=== PATIENT | female | born 1960 | race Caucasian/White ===

== ENCOUNTER 2016-10-16 13:14 | Inpatient (IN) | payer OTHER ==
[2016-10-16 13:23] VITALS: BMI 22.3
[2016-10-16] MEDS ORDERED: ASPIRIN 325 MG ENTERIC COATED TABLET (FP) PO ONE (13:42)
[2016-10-16] MEDS ORDERED: ASPIRIN 325 MG TABLET ONE (13:42)
--- NOTE | 2016-10-16 13:42 | PDOC ---
History of Present Illness - General History Source: Patient, Old Records Exam Limitations: No Limitations <Jennifer Beck - Last Filed: 10/16/16 15:51> - General History Source: Patient, Family (Daughter) Exam Limitations: No Limitations - History of Present Illness Initial Comments: 10/16/16 13:51 The patient is a 56-year-old Divehi Speaking woman, accompanied by her daughter , with a significant past medical history of hypertension, diet controlled diabetes mellitus and gastroesophageal reflux disease who presents to the emergency department via walk-in for further evaluation of chest pain. Information was obtained by patient's daughter, as she is fluent in [place] and Divehi. As per daughter, the patient woke up this morning, at approximately 01: 00 AM with complaints of mid-sternal, non-radiating chest pain, described as a burning sensation with associated shortness of breath, diaphoresis and chills. At that time, she states her pain was a 10/10 in severity. Her woke up and measured her blood pressure (reportedly 180s/90s; typical baseline BP is in the 120s/90s). Patient did not want to come to the hospital. Patient's daughter just so happened to visit her mother, approximately 1 hour ago, when she informed her daughter of her symptoms. Patient's daughter convinced her to present to the ED for further evaluation. Currently, the patient reports chest pain (rated 5/10 in severity) that is exacerbated when taking deep inspirations. She also states that she is currently nauseous. No generalized weakness. No lightheadedness, dizziness, visual changes, headaches, neck pain/stiffness. No abdominal pain, vomiting, diarrhea. No urinary symptoms. Allergies: Penicillin. Shellfish Past Surgical History: Cholecystectomy. Caesarian section x2,. Cardiac catheterization. Tubal ligation. Social History: No tobacco, EtOH and recreational drug use. Primary Care Physician: Dr. Jonathan Berry <Catherine Orantes - Last Filed: 10/16/16 16:10> - General Chief Complaint: Chest Pain Stated Complaint: CHEST PAIN Time Seen by Provider: 10/16/16 13:28 Past History - Past Medical History Anemia: No Asthma: No Cancer: No Cardiac Disorders: No CVA: No COPD: No CHF: No Dementia: No Diabetes: Yes GI Disorders: Yes Disorders: No HTN: Yes Hypercholesterolemia: No Liver Disease: No Seizures: No Thyroid Disease: No Other medical history: CROHNS - Surgical History Abdominal Surgery: Yes Appendectomy: No Cardiac Surgery: No Cholecystectomy: Yes Lung Surgery: No Neurologic Surgery: No Orthopedic Surgery: No - Psycho/Social/Smoking Cessation Hx Anxiety: No Suicidal Ideation: No Smoking History: Former smoker Have you smoked in the past 12 months: No If you are a former smoker, when did you quit?: 15 YRS AGO Information on smoking cessation initiated: No Hx Alcohol Use: No Drug/Substance Use Hx: No Substance Use Type: None <Jennifer Beck - Last Filed: 10/16/16 15:51> <Catherine Orantes - Last Filed: 10/16/16 16:10> - Past Medical History Allergies/Adverse Reactions: Allergies Allergy/AdvReac Type Severity Reaction Status Date / Time Penicillins Allergy Verified 10/16/16 13:23 shellfish derived Allergy Verified 10/16/16 13:23 Home Medications: Ambulatory Orders Budesonide [Uceris (Nonformulary)] 9 mg PO DAILY 10/16/16 Colestipol HCl [Colestid] 1 gm PO BID 10/16/16 Omeprazole Magnesium [Prilosec] 40 mg PO DAILY 10/16/16 Review of Systems - Review of Systems Able to Perform ROS?: Yes Comments:: 10/16/16 13:51 CONSTITUTIONAL: Present: Chills. Diaphoresis. Absent: fever, generalized weakness, malaise, loss of appetite HEENT: Absent: rhinorrhea, nasal congestion, throat pain, throat swelling, difficulty swallowing, mouth swelling, ear pain, eye pain, visual Changes CARDIOVASCULAR: Present: Chest Pain. Absent: syncope, palpitations, irregular heart rate, lightheadedness, peripheral edema RESPIRATORY: Present: Shortness of breath. Absent: cough, dyspnea with exertion , orthopnea, wheezing, stridor, hemoptysis GASTROINTESTINAL: Present: Nausea. Absent: abdominal distension, vomiting, diarrhea, constipation, melena, hematochezia GENITOURINARY: Absent: dysuria, frequency, urgency, hesitancy, hematuria, flank pain, genital pain MUSCULOSKELETAL: Absent: myalgia, arthralgia, joint swelling SKIN: Absent: rash, itching, pallor HEMATOLOGIC/IMMUNOLOGIC: Absent: easy bleeding, easy bruising, lymphadenopathy, frequent infections ENDOCRINE:Absent: unexplained weight gain, unexplained weight loss, heat intolerance, cold intolerance NEUROLOGIC: Absent: headache, focal weakness or paresthesias, dizziness, unsteady gait, seizure, mental status changes, bladder or bowel incontinence PSYCHIATRIC: Absent: anxiety, depression, suicidal or homicidal ideation, hallucinations <OrantesLeandroCatherine - Last Filed: 10/16/16 16:10> *Physical Exam - Vital Signs Last Vital Signs Temp Pulse Resp BP Pulse Ox 98.2 F 91 H 20 165/88 99 10/16/16 13:18 10/16/16 13:18 10/16/16 13:18 10/16/16 13:18 10/16/16 13:18 <Jennifer Beck - Last Filed: 10/16/16 15:51> - Vital Signs Last Vital Signs Temp Pulse Resp BP Pulse Ox 98.2 F 91 H 20 165/88 99 10/16/16 13:18 10/16/16 13:18 10/16/16 13:18 10/16/16 13:18 10/16/16 13:18 - Physical Exam Comments: 10/16/16 13:51 GENERAL: Well developed, well nourished. Awake and alert. No acute distress. HEENT: Normocephalic, atraumatic. PERRLA, EOMI. No conjunctival pallor. Sclera are non-icteric. Moist mucous membranes. Oropharynx is clear. NECK: Supple. Full ROM. No JVD. CARDIOVASCULAR: Regular rate and rhythm. No murmurs, rubs, or gallops. PULMONARY: No evidence of respiratory distress. Lungs clear to auscultation bilaterally. No wheezing, rales or rhonchi. ABDOMINAL: Soft. Non-tender. Non-distended. No rebound or guarding. No organomegaly. Normoactive bowel sounds. MUSCULOSKELETAL: Normal range of motion at all joints. No bony deformities or tenderness. No CVA tenderness. EXTREMITIES: No cyanosis. No clubbing. No edema. No calf tenderness. SKIN: Warm and dry. Normal capillary refill. No rashes. No jaundice. NEUROLOGICAL: Alert, awake, appropriate. Cranial nerves 2-12 intact. Normal speech. PSYCHIATRIC: Cooperative. Good eye contact. Appropriate mood and affect. <Catherine Orantes - Last Filed: 10/16/16 16:10> ED Treatment Course - LABORATORY CBC & Chemistry Diagram: 10/16/16 13:00 10/16/16 13:00 <Jennifer Beck - Last Filed: 10/16/16 15:51> - LABORATORY CBC & Chemistry Diagram: 10/16/16 13:00 10/16/16 13:00 - RADIOLOGY Radiograph Interpretation: 10/16/16 14:26 EXAM: RAD/CHEST X-RAY PORTABLE IMPRESSION: A single AP view the chest reveals a weak inspiratory effort with clear lungs, prominent heart, normal aorta and normal eli. The angles are sharp. An acute process is not seen. Since 01/02/2009, allowing for variation in inspiration, there is no change of an adverse nature. - Medications Given in the ED: ED Medications Discontinued Medications Generic Name Dose Route Start Last Admin Trade Name Freq PRN Reason Stop Dose Admin Aspirin 325 mg 10/16/16 13:42 10/16/16 13:50 Ecotrin - PO 10/16/16 13:43 325 mg ONCE ONE Administration <Catherine Orantes - Last Filed: 10/16/16 16:10> Medical Decision Making - Medical Decision Making 10/16/16 13:43 56-year-old female with history of hypertension, GERD, diet controlled diabetes who presents the emergency department with chest pain 12 hours that has been waxing and waning in nature. Differential diagnosis includes but is not limited to: ACS, GERD, pneumonia, gastritis, pancreatitis, dehydration, toxic/metabolic derangement. Plan: 1. EKG 2. Labs 3. Aspirin 4. Observe and reevaluate 5. Given the patient's cardiac risk factors and history of present illness, will likely have the patient admitted to observation for serial cardiac markers and stress test <Jennifer Beck - Last Filed: 10/16/16 15:51> - Medical Decision Making 10/16/16 15:[address] Bridgette Velázquez who covers for patient's primary care physician, Dr. Jonathan Berry, here at the hospital. <Catherine Orantes - Last Filed: 10/16/16 16:10> *DC/Admit/Observation/Transfer - Discharge Dispostion Admit: Yes - Attestations Physician Attestion: 10/16/16 13:45 I, Dr. Jennifer Beck, attest that the scribes documentation that appears above has been prepared under my direction and personally reviewed by me in its entirety. I confirmed that the note above accurately reflects all work, treatment, procedures, and medical decision-making performed by me. <Jennifer Beck - Last Filed: 10/16/16 15:51> - Attestations Scribe Attestion: 10/16/16 13:52 Documentation prepared by Catherine Orantes, acting as hospitalist medical director for Jennifer Beck MD. <Catherine Orantes - Last Filed: 10/16/16 16:10> Diagnosis at time of Disposition: Chest pain - Discharge Dispostion Condition at time of disposition: Stable - Referrals Referrals: Jonathan Berry MD [Primary Care Provider] -
[2016-10-16 13:54] LABS: BASOPHIL 0.4 % (0-2.0); EOSINOPHIL 2.2 % (0-4.5); MCH 27.6 pg (25.7-33.7); MEAN CELL VOLUME 83.4 fl (80-96); MEAN PLT VOLUME 9.8 fl (7.5-11.1); NEUTROPHILS 68.5 % (42.8-82.8); PLATELET COUNT 244 K/MM3 (134-434); RDW 13.8 % (11.6-15.6); WHITE BLOOD COUNT 9.6 K/mm3 (4.0-10.0)
[2016-10-16 14:19] LABS: ALBUMIN 3.7 g/dl (3.4-5.0); ANION GAP 13 (8-16); BILIRUBIN,TOTAL 0.6 mg/dL (0.2-1.0); CALCIUM 9.4 mg/dL (8.5-10.1); CO2 26 mmol/L (21-32); COCKROFT - GAULT 63.4185; CREATININE 0.9 mg/dL (0.55-1.02); GLUCOSE,RANDOM 99 mg/dL (74-106); SGOT/AST 19 U/L (15-37); SGPT/ALT 18 U/L (12-78); TOT PROT 7.9 g/dl (6.4-8.2)
[2016-10-16 14:21] LABS: ALK PHOS 136 U/L (45-117); TROPONIN I < 0.02 ng/ml (0.00-0.05)
[2016-10-16 14:55] LABS: URINE APPEARANCE CLEAR; URINE BILIRUBIN NEGATIVE (NEGATIVE); URINE COLOR COLORLESS; URINE GLUCOSE (UA) NEGATIVE (NEGATIVE); URINE KETONE NEGATIVE (NEGATIVE); URINE LEUK ESTERASE NEGATIVE (NEGATIVE); URINE NITRITE NEGATIVE (NEGATIVE); URINE PROTEIN NEGATIVE (NEGATIVE); URINE UROBILINOGEN NEGATIVE E.U./dl (0.2-1.0)
[2016-10-16 15:04] LABS: URINE BLOOD 1+ (NEGATIVE)
[2016-10-16 15:27] LABS: URINE RBC 1 /hpf (0-3); URINE WBC <1 /hpf (3-5)
[2016-10-16 21:27] LABS: TROPONIN I < 0.02 ng/ml (0.00-0.05)
[2016-10-16] MEDS: PANTOPRAZOLE 40 MG TABLET (FP) PO SCH (22:21)
[2016-10-17] MEDS ORDERED: PT OWN MED DRAWER 7, Y5N ONE ×4 (09:26→22:11)
[2016-10-17] MEDS ORDERED: BUDESONIDE 9 MG PO SCH (10:00)
--- NOTE | 2016-10-17 10:01 | CON.CARD ---
Consult Consult Specialty:: cardiology Reason for Consultation:: chest pain - History of Present Illness Chief Complaint: Pt denies chest pain or dyspnea presently. History of Present Illness: The patient is a 56-year-old Pashto Speaking woman, accompanied by her daughter , with a significant past medical history of hypertension, diet controlled diabetes mellitus and gastroesophageal reflux disease who presents to the emergency department via walk-in for further evaluation of chest pain. Information was obtained by patient's daughter, as she is fluent in Lao and Pashto. As per daughter, the patient woke up this morning, at approximately 01: 00 AM with complaints of mid-sternal, non-radiating chest pain, described as a burning sensation with associated shortness of breath, diaphoresis and chills. At that time, she states her pain was a 10/10 in severity. Her woke up and measured her blood pressure (reportedly 180s/90s; typical baseline BP is in the 120s/90s). Patient did not want to come to the hospital. Patient's daughter just happened to visit her mother, approximately 1 hour ago, when she informed her daughter of her symptoms. Patient's daughter convinced her to present to the ED for further evaluation. Currently, the patient reports chest pain (rated 5/10 in severity) that is exacerbated when taking deep inspirations. She also states that she is currently nauseous. No generalized weakness. No lightheadedness, dizziness, visual changes, headaches, neck pain/stiffness. No abdominal pain, vomiting, diarrhea. No urinary symptoms. Allergies: Penicillin. Shellfish Past Surgical History: Cholecystectomy. Caesarian section x2,. Cardiac catheterization. Tubal ligation. Social History: No tobacco, EtOH and recreational drug use. Primary Care Physician: Dr. Jonathan Berry - History Source History Provided By: Patient, Medical Record Limitations to Obtaining History: Poor Historian - Past Medical History Cardio/Vascular: Yes: HTN, Hyperlipdemia, Other (DM) Pulmonary: No: Asthma Gastrointestinal: Yes: GERD Reproductive: Yes: Postmenopausal Psych: Yes: Anxiety - Alcohol/Substance Use Hx Alcohol Use: No - Smoking History Smoking history: Former smoker Have you smoked in the past 12 months: No If you are a former smoker, when did you quit?: 15 YRS AGO Home Medications - Allergies Allergies/Adverse Reactions: Allergies Allergy/AdvReac Type Severity Reaction Status Date / Time Penicillins Allergy Verified 10/16/16 13:23 shellfish derived Allergy Verified 10/16/16 13:23 - Home Medications Home Medications: Ambulatory Orders Budesonide [Uceris (Nonformulary)] 9 mg PO DAILY 10/16/16 Colestipol HCl [Colestid] 1 gm PO BID 10/16/16 Omeprazole Magnesium [Prilosec] 40 mg PO DAILY 10/16/16 Azathioprine [Imuran] 75 mg PO DAILY 10/17/16 Losartan/Hydrochlorothiazide [Losartan-Hctz 50-12.5 mg Tab] 1 tablet 10/17/16 Family Disease History - Family Disease History Family History: Denies Review of Systems - Review of Systems Constitutional: reports: Loss of Appetite Eyes: reports: No Symptoms HENT: reports: No Symptoms Neck: reports: No Symptoms Cardiovascular: reports: Chest Pain Respiratory: reports: SOB on Exertion Gastrointestinal: reports: Indigestion, Nausea Genitourinary: reports: No Symptoms Breasts: reports: No Symptoms Reported Musculoskeletal: reports: No Symptoms Integumentary: reports: No Symptoms Neurological: reports: No Symptoms Endocrine: reports: No Symptoms Hematology/Lymphatic: reports: No Symptoms - Risk Factors Known Risk Factors: Yes: Age, Diabetes Mellitus, Hypercholesterolemia, Hypertension, Physical Inactivity Vital Signs: Vital Signs Temperature 98.2 F 10/17/16 06:43 Pulse Rate 81 10/17/16 06:43 Respiratory Rate 18 10/17/16 06:43 Blood Pressure 112/65 10/17/16 06:43 O2 Sat by Pulse Oximetry (%) 100 10/16/16 21:30 Constitutional: Yes: Anxious Eyes: Yes: WNL HENT: Yes: WNL Neck: Yes: WNL Respiratory: Yes: Regular Gastrointestinal: Yes: Soft Renal/: No: Anuria Cardiovascular: Yes: Regular Rate and Rhythm JVD: No Carotid Bruit: No PMI: Non-Displaced Heart Sounds: Yes: S1, S2 Murmur: Yes: Systolic Murmur, Grade 1 Extremities: Yes: WNL Edema: No Peripheral Pulses WNL: Yes Integumentary: Yes: WNL Neurological: Yes: Alert, Oriented Psychiatric: Yes: Oriented - Other Data Labs, Other Data: Troponin, BNP 10/16/16 20:45 Troponin I < 0.02 Troponin, BNP 10/16/16 20:45 Troponin I < 0.02 Imaging - Results Chest X-ray: Image Reviewed (no acute pathology) EKG: Image Reviewed (normal study (05/28)) Problem List - Problems (1) Diabetes Code(s): E11.9 - TYPE 2 DIABETES MELLITUS WITHOUT COMPLICATIONS (2) Diarrhea Code(s): R19.7 - DIARRHEA, UNSPECIFIED (3) HTN (hypertension) Code(s): I10 - ESSENTIAL (PRIMARY) HYPERTENSION (4) Hyperlipidemia Code(s): E78.5 - HYPERLIPIDEMIA, UNSPECIFIED (5) Nausea Code(s): R11.0 - NAUSEA (6) Elevated lipase Assessment/Plan: repeat level; GI input (?hx Chron disease). Code(s): R74.8 - ABNORMAL LEVELS OF OTHER SERUM ENZYMES (7) Crohn disease Assessment/Plan: ? hx. F/u with PMD, GI. Code(s): K50.90 - CROHN'S DISEASE, UNSPECIFIED, WITHOUT COMPLICATIONS (8) Atypical chest pain Assessment/Plan: TNI < 0.02. Pt reproduced with deep breaths; lasting off and on for >24 hours. F/u EKG, ECHO. Obtain complete cardiac history. Lipids; TSH. Code(s): R07.89 - OTHER CHEST PAIN
[2016-10-17] MEDS: PANTOPRAZOLE 40 MG TABLET (FP) PO SCH (10:10)
[2016-10-17 11:32] LABS: MAGNESIUM 1.9 mg/dL (1.8-2.4)
[2016-10-17 11:39] LABS: THYROID STIMULATING HORMONE 1.4 uIU/ml (0.358-3.74)
[2016-10-17] MEDS: BUDESONIDE 3 MG PO SCH (14:15)
--- NOTE | 2016-10-17 21:58 | HP ---
Admitting History and Physical - Admission History Source: Patient - Past Medical History Cardiovascular: Yes: HTN, Hyperlipdemia Gastrointestinal: Yes: GERD Endocrine: Yes: Diabetes Mellitus - Past Surgical History Past Surgical History: Yes: None - Smoking History Smoking history: Former smoker Have you smoked in the past 12 months: No If you are a former smoker, when did you quit?: 15 YRS AGO - Alcohol/Substance Use Hx Alcohol Use: No Home Medications - Allergies Allergies/Adverse Reactions: Allergies Allergy/AdvReac Type Severity Reaction Status Date / Time Penicillins Allergy Verified 10/16/16 13:23 shellfish derived Allergy Verified 10/16/16 13:23 - Home Medications Home Medications: Ambulatory Orders Budesonide [Uceris (Nonformulary)] 9 mg PO DAILY 10/16/16 Colestipol HCl [Colestid] 1 gm PO BID 10/16/16 Omeprazole Magnesium [Prilosec] 40 mg PO DAILY 10/16/16 Azathioprine [Imuran] 75 mg PO DAILY 10/17/16 Losartan/Hydrochlorothiazide [Losartan-Hctz 50-12.5 mg Tab] 1 tablet 10/17/16 Family Disease History - Family Disease History Family History: Unremarkable Review of Systems - Review of Systems Constitutional: reports: No Symptoms Eyes: reports: No Symptoms HENT: reports: No Symptoms Neck: reports: No Symptoms Cardiovascular: reports: Chest Pain Respiratory: reports: No Symptoms Gastrointestinal: reports: Nausea Genitourinary: reports: No Symptoms Physical Examination Vital Signs: Vital Signs Temperature 98.3 F 10/17/16 14:29 Pulse Rate 85 10/17/16 14:29 Respiratory Rate 18 10/17/16 14:29 Blood Pressure 121/75 10/17/16 14:29 O2 Sat by Pulse Oximetry (%) 95 10/17/16 17:00 Constitutional: Yes: Well Nourished Eyes: Yes: WNL HENT: Yes: WNL Neck: Yes: Supple Cardiovascular: Yes: WNL, Regular Rate and Rhythm Respiratory: Yes: WNL, Regular, CTA Bilaterally Gastrointestinal: Yes: WNL, Normal Bowel Sounds, Soft Musculoskeletal: Yes: WNL Extremities: Yes: WNL Edema: No Neurological: Yes: WNL, Alert, Oriented ...Motor Strength: WNL Labs: CBC, BMP 10/17/16 10:35 Assessment/Plan 1. Chest pain Admit to tele Serial cpok/troponin Check echo ?elevated lipase ?pancreatitis 2 pancreatitis Change to po liquids due to elevated lipase Trend labs in am Check ct scan abd/pelvis GI consult 3. HTN/HLD
[2016-10-17] MEDS: COLESTIPOL HCL 1 GM PO SCH (22:07)
[2016-10-18] MEDS ORDERED: DEXTROSE 5%-0.45% SALINE 1,000 ML IV SCH (01:15)
[2016-10-18 02:43] LABS: AMYLASE 149 U/L (25-115)
[2016-10-18] MEDS ORDERED: PT OWN MED DRAWER 7, Y5N ONE (09:09)
[2016-10-18] MEDS: COLESTIPOL HCL 1 GM PO SCH ×2 (09:11→21:23)
[2016-10-18] MEDS: BUDESONIDE 3 MG PO SCH (09:11)
[2016-10-18] MEDS: PANTOPRAZOLE 40 MG TABLET (FP) PO SCH (09:11)
--- NOTE | 2016-10-18 11:40 | PN ---
Progress Note, Physician History of Present Illness: seen and examined today in [facility]. no overnight events. no new complaints. no further chest pain. - Current Medication List Current Medications: Active Medications Dextrose/Sodium Chloride (D5-1/2ns -) 1,000 mls @ 75 mls/hr IV ASDIR [facility] Last Admin: 10/18/16 01:30 Dose: 75 mls/hr Non-Formulary Medication (Colestipol Hcl [Colestid]) 1 gm PO BID [facility] Last Admin: 10/18/16 09:11 Dose: 1 gm Non-Formulary Med: (Budesonide 3 Mg Caps) 3 each PO DAILY [facility] Last Admin: 10/18/16 09:11 Dose: 3 each Pantoprazole Sodium (Protonix -) 40 mg PO DAILY [facility] Last Admin: 10/18/16 09:11 Dose: 40 mg - Objective Vital Signs: Vital Signs Temperature 97.5 F L 10/18/16 06:00 Pulse Rate 68 10/18/16 06:00 Respiratory Rate 18 10/18/16 06:00 Blood Pressure 100/63 10/18/16 06:00 O2 Sat by Pulse Oximetry (%) 97 10/17/16 22:00 Constitutional: Yes: Well Nourished, No Distress, Calm Eyes: Yes: WNL, Conjunctiva Clear, EOM Intact, PERRL HENT: Yes: WNL, Atraumatic, Normocephalic Neck: Yes: WNL, Supple, Trachea Midline Cardiovascular: Yes: WNL, Regular Rate and Rhythm, S1, S2. No: Bradycardia, Tachycardia, Pulse Irregular, Bruit, JVD, Gallop, Murmur, Rub, S3, S4, Varicosities Respiratory: Yes: WNL, Regular, CTA Bilaterally. No: Rales, Rhonchi, Wheezes Gastrointestinal: Yes: Normal Bowel Sounds, Tenderness. No: Distention Musculoskeletal: Yes: WNL Extremities: Yes: WNL Edema: No Peripheral Pulses WNL: Yes Peripheral Pulses: Left Doralis Pedis: 2+, Right Dorsalis Pedis: 2+ Integumentary: Yes: WNL Neurological: Yes: Alert, Oriented Psychiatric: Yes: Alert, Oriented Labs: CBC, BMP 10/17/16 10:35 - ....Imaging Chest X-ray: Report Reviewed, Image Reviewed EKG: Report Reviewed, Image Reviewed Other: Report Reviewed, Image Reviewed (tele-nsr, no sig arrhythmias recorded) Assessment/Plan 56 year old woman with a history of HTN, DMII, HLD, GERD admitted with atypical chest pain, nausea, diarrhea, abdominal discomfort. Chest pain-atypical, unlikely ACS -cardiac enzymes wnl -no ischemia on ekg and no concerning arrhythmias on tele -chest pain resolved -can check an echo to evaluate for structural heart disease -given elevated amylase and lipase levels and GI complaints would evaluate for GI source of her symptoms -would hold off on stress testing at this point, can be considered as outpatient -ok to dc tele HTN-adequately controlled -observe off anti-HTN meds for now HLD-adequately controlled -does not require medical rx at this time -unclear why pt on colestipol if for GI purposes or HLD, will clarify
--- NOTE | 2016-10-18 13:29 | EKG ---
Test Reason : Blood Pressure : / mmHG Vent. Rate : 070 BPM Atrial Rate : 070 BPM P-R Int : 162 ms QRS Dur : 094 ms QT Int : 398 ms P-R-T Axes : 063 024 030 degrees QTc Int : 429 ms NORMAL SINUS RHYTHM NORMAL ECG WHEN COMPARED WITH ECG OF 16-OCT-2016 13:21, NO SIGNIFICANT CHANGE WAS FOUND Confirmed by ISABEL VARGHESE MD ([id number]) on 10/18/2016 1:28:44 PM Referred By: SCHUYLER BRAY Confirmed By:ISABEL VARGHESE MD
--- NOTE | 2016-10-18 13:39 | EKG ---
Test Reason : Blood Pressure : / mmHG Vent. Rate : 088 BPM Atrial Rate : 088 BPM P-R Int : 140 ms QRS Dur : 082 ms QT Int : 368 ms P-R-T Axes : 061 019 045 degrees QTc Int : 445 ms NORMAL SINUS RHYTHM NORMAL ECG WHEN COMPARED WITH ECG OF 20-MAY-2016 16:41, NO SIGNIFICANT CHANGE WAS FOUND Confirmed by ISABEL VARGHESE MD ([id number]) on 10/18/2016 1:39:08 PM Referred By: Confirmed By:ISABEL VARGHESE MD
[2016-10-18] MEDS ORDERED: diazePAM 2 MG TABLET PO ONE (19:44)
--- NOTE | 2016-10-18 19:56 | CON.GI ---
Consult Consult Specialty:: gastroenterology Referred by:: Dr Jonathan Berry - History of Present Illness History of Present Illness: 56 y/oo female with PMH of Crohns disease was asked to be seen because of elevated lipase. She denies abdominal pain, nause and vomiting. She is on entocort and Immuran for her Crohns disease. - Past Medical History Cardio/Vascular: Yes: HTN, Hyperlipdemia, Other (DM) Pulmonary: No: Asthma Gastrointestinal: Yes: GERD Psych: Yes: Anxiety Endocrine: Yes: Diabetes Mellitus - Past Surgical History Past Surgical History: Yes: None - Alcohol/Substance Use Hx Alcohol Use: No - Smoking History Smoking history: Former smoker Have you smoked in the past 12 months: No If you are a former smoker, when did you quit?: 15 YRS AGO Home Medications - Allergies Allergies/Adverse Reactions: Allergies Allergy/AdvReac Type Severity Reaction Status Date / Time Penicillins Allergy Verified 10/16/16 13:23 shellfish derived Allergy Verified 10/16/16 13:23 - Home Medications Home Medications: Ambulatory Orders Budesonide [Uceris (Nonformulary)] 9 mg PO DAILY 10/16/16 Colestipol HCl [Colestid] 1 gm PO BID 10/16/16 Omeprazole Magnesium [Prilosec] 40 mg PO DAILY 10/16/16 Azathioprine [Imuran] 75 mg PO DAILY 10/17/16 Losartan/Hydrochlorothiazide [Losartan-Hctz 50-12.5 mg Tab] tablet 10/17/16 Losartan 50Mg/Hctz 12.5MG [Hyzaar -] 1 tab PO DAILY 10/18/16 Physical Exam-GI Vital Signs: Vital Signs Temperature 98.6 F 10/18/16 18:00 Pulse Rate 70 10/18/16 18:00 Respiratory Rate 18 10/18/16 18:00 Blood Pressure 122/75 10/18/16 18:00 O2 Sat by Pulse Oximetry (%) 98 10/18/16 10:00 Constitutional: Yes: Well Nourished Eyes: Yes: Conjunctiva Clear HENT: Yes: Atraumatic Neck: Yes: Supple Cardiovascular: Yes: Regular Rate and Rhythm Respiratory: Yes: CTA Bilaterally ...Palpate: Yes: Soft. No: Firm/Rigid, Guarding, Hepatomegaly, Mass, Pulsatile Mass, Splenomegaly, Tenderness Problem List - Problems (1) Crohn disease Assessment/Plan: of terminal ileum R> continue entocort and Immuran patient could take her own medication Code(s): K50.90 - CROHN'S DISEASE, UNSPECIFIED, WITHOUT COMPLICATIONS (2) Elevated lipase Assessment/Plan: secondary to Immuran R> if patient is asymptomatic will nnot stop Immuran at this time' patient made aware to follow-up advance diet Code(s): R74.8 - ABNORMAL LEVELS OF OTHER SERUM ENZYMES
--- NOTE | 2016-10-18 20:44 | PN ---
Progress Note, Physician History of Present Illness: Pt states that she is feeling better - Current Medication List Current Medications: Active Medications Dextrose/Sodium Chloride (D5-1/2ns -) 1,000 mls @ 75 mls/hr IV ASDIR [facility] Last Admin: 10/18/16 01:30 Dose: 75 mls/hr Non-Formulary Medication (Colestipol Hcl [Colestid]) 1 gm PO BID [facility] Last Admin: 10/18/16 09:11 Dose: 1 gm Non-Formulary Med: (Budesonide 3 Mg Caps) 3 each PO DAILY [facility] Last Admin: 10/18/16 09:11 Dose: 3 each Pantoprazole Sodium (Protonix -) 40 mg PO DAILY [facility] Last Admin: 10/18/16 09:11 Dose: 40 mg - Objective Vital Signs: Vital Signs Temperature 98.6 F 10/18/16 18:00 Pulse Rate 70 10/18/16 18:00 Respiratory Rate 18 10/18/16 18:00 Blood Pressure 122/75 10/18/16 18:00 O2 Sat by Pulse Oximetry (%) 98 10/18/16 10:00 Constitutional: Yes: No Distress Neck: Yes: Supple Cardiovascular: Yes: WNL, Regular Rate and Rhythm Respiratory: Yes: WNL, Regular, CTA Bilaterally Gastrointestinal: Yes: WNL, Normal Bowel Sounds, Soft Extremities: Yes: WNL Edema: No Problem List - Problems (1) Elevated lipase Assessment/Plan: Advance diet DC planning for am Code(s): R74.8 - ABNORMAL LEVELS OF OTHER SERUM ENZYMES (2) Chest pain Assessment/Plan: Atypical troponin is negative BP stable Echo pending DC planning for am Code(s): R07.9 - CHEST PAIN, UNSPECIFIED (3) Crohn disease Assessment/Plan: As per GI Pt to continue her own meds (Immuran) Code(s): K50.90 - CROHN'S DISEASE, UNSPECIFIED, WITHOUT COMPLICATIONS (4) HTN (hypertension) Assessment/Plan: Will restart losartan Code(s): I10 - ESSENTIAL (PRIMARY) HYPERTENSION (5) Diabetes Assessment/Plan: Pt not on any meds ?Diet controlled Code(s): E11.9 - TYPE 2 DIABETES MELLITUS WITHOUT COMPLICATIONS (6) Hyperlipidemia Code(s): E78.5 - HYPERLIPIDEMIA, UNSPECIFIED
[2016-10-19] MEDS: BUDESONIDE 3 MG PO SCH (09:09)
[2016-10-19] MEDS: PANTOPRAZOLE 40 MG TABLET (FP) PO SCH (09:09)
[2016-10-19] MEDS: COLESTIPOL HCL 1 GM PO SCH (09:09)
--- NOTE | 2016-10-19 09:16 | PN ---
Progress Note, Physician Chief Complaint: no further chest pain TLE: NSR with artifact. Appreciate GI input - Current Medication List Current Medications: Active Medications Losartan Potassium (Cozaar -) 25 mg PO DAILY ON [facility] OF [facility] Last Admin: 10/19/16 09:09 Dose: 25 mg Non-Formulary Medication (Colestipol Hcl [Colestid]) 1 gm PO BID ON LICENSE OF [facility] Last Admin: 10/19/16 09:09 Dose: 1 gm Non-Formulary Med: (Budesonide 3 Mg Caps) 3 each PO DAILY ON LICENSE OF [facility] Last Admin: 10/19/16 09:09 Dose: 3 each Pantoprazole Sodium (Protonix -) 40 mg PO DAILY ON LICENSE OF [facility] Last Admin: 10/19/16 09:09 Dose: 40 mg - Objective Vital Signs: Vital Signs Temperature 97.5 F L 10/19/16 05:58 Pulse Rate 67 10/19/16 05:58 Respiratory Rate 20 10/19/16 05:58 Blood Pressure 127/77 10/19/16 05:58 O2 Sat by Pulse Oximetry (%) 97 10/18/16 21:00 Constitutional: Yes: No Distress Eyes: Yes: Conjunctiva Clear Cardiovascular: Yes: Regular Rate and Rhythm Respiratory: Yes: CTA Bilaterally Gastrointestinal: Yes: Soft Edema: No Neurological: Yes: Alert, Oriented ...Motor Strength: WNL Labs: Laboratory Tests 10/16/16 10/16/16 10/17/16 13:00 20:45 10:35 Troponin I < 0.02 < 0.02 Lipase 1471 H 10/18/16 02:00 Troponin I Lipase 1493 H Assessment/Plan Assessment/Plan 56 year old woman with a history of HTN, DMII, HLD, GERD admitted with atypical chest pain, nausea, diarrhea, abdominal discomfort with elevated Lipase. Chest pain-atypical, unlikely ACS. Suspect due to GI source. -cardiac enzymes wnl -no ischemia on ekg and no concerning arrhythmias on tele -chest pain resolved -echo Mild MR, otherwise nl EF -Can d/c tele -Outpatient stress test when GI issues resolve.
[2016-10-19] MEDS ORDERED: LOSARTAN POTASSIUM 25 MG TABLET PO SCH (10:00)
[2016-10-19 10:10] VITALS: BP 139/72; PULSE 68; TEMP 97.8
== END 2016-10-19 12:16 | disposition home or self-care (01) | DRG 203 ==
LOC: JER 13:14 → J4S 18:28 → OBSVTOIN 10-18 12:00
PROVIDERS: ADMIT Internal Medicine; ATTEND Internal Medicine
DX: R07.89 Other chest pain (principal); I10 Essential (primary) hypertension; E11.9 Type 2 diabetes mellitus without complications; K50.90 Crohn's disease, unspecified, without complications; E78.5 Hyperlipidemia, unspecified; K21.9 Gastro-esophageal reflux disease without esophagitis; Z87.891 Personal history of nicotine dependence; Z88.0 Allergy status to penicillin; Z91.013 Allergy to seafood
CPT/HCPCS: 36415; 71010-TC; 80053; 80061; 81003; 81015; 82150; 82550; 83690; 83721; 83735; 84075; 84132; 84443; 84484; 85025; 93005; 93010; 93306-TC; 99284-25; G0378